=== PATIENT | male | born 1965 | race Caucasian/White ===

== ENCOUNTER → 2019-03-14 | Outpatient (CLI) | payer OTHER ==
--- NOTE | 2019-03-14 09:19 | MRI ---
PROVIDED CLINICAL HISTORY/REASON FOR EXAM: LUMBAR RADICULOPATHY TECHNIQUE: Multiplanar, multisequence MRI examination performed of the lumbar spine without intravenous contrast material. COMPARISON: None available. FINDINGS: Five lumbar type vertebra are assumed. The designated L5/S1 disc space is at axial T2 image 3. Alignment: 6 mm anterolisthesis L5 on S1 with a possible unilateral right L5 pars defect. Minimal degenerative retrolisthesis L3 on L4. Minimal degenerative anterolisthesis L4 on L5. Fracture: No acute fracture identified. Paraspinal Soft Tissues: Unremarkable. Retroperitoneum: Visible structures are unremarkable. Conus Medullaris: Termination at L1-L2 level. Morphology is normal. T12/L1: No significant abnormality. L1/2: Small symmetric disc bulge. Bilateral facet hypertrophy with thickening of the ligamentum flavum. No central canal stenosis. Mild bilateral neural foraminal narrowing. L2/3: Small asymmetric right disc bulge osteophyte complex. Bilateral facet hypertrophy with thickening of the ligamentum flavum. No significant central canal stenosis. Mild bilateral neural foraminal narrowing. L3/4: Disc desiccation with loss of disc space height. Diffuse symmetric disc bulge osteophyte complex. Bilateral facet hypertrophy with thickening of the ligamentum flavum. Mild central canal stenosis. Mild bilateral lateral recess stenosis. Moderate bilateral neural foraminal narrowing. L4/5: Disc desiccation with loss of disc space height and endplate degenerative change. Diffuse symmetric disc bulge osteophyte complex with a superimposed posterior annular fissure. Left paracentral superimposed disc protrusion which measures 6 mm AP by 1 cm TV. Severe central canal stenosis. Bilateral facet hypertrophy with thickening of the ligamentum flavum. Severe bilateral lateral recess stenosis. Severe bilateral neural foraminal narrowing. L5/S1: Uncovering of the posterior annulus. Marked bilateral facet hypertrophy. Disc space narrowing with endplate degenerative change and loss of disc T2 signal. Posterior annular fissure. Mild central canal stenosis. Severe bilateral neural foraminal narrowing. Moderate bilateral lateral recess stenosis. IMPRESSION: Multilevel lumbar spondylosis most pronounced at L4/L5 and L5/S1 as above. Electronically signed by: Dany Salguero MD 03/14/2019 9:17 AM [employer]
== END ==
LOC: MRI 07:04
PROVIDERS: ATTEND Family Medicine
DX: M47.26 Other spondylosis with radiculopathy, lumbar region (principal); M47.27 Other spondylosis with radiculopathy, lumbosacral region